=== PATIENT | male | born 2000 | race Caucasian/White ===

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

== ENCOUNTER → 2023-03-26 19:25 | Outpatient (CLI) | payer OTHER, SELFPAY ==
--- NOTE | 2023-03-26 19:27 | DI.RAD.S_ITS ---
PROCEDURE: XR KNEE RT 3V INDICATIONS: R anterior knee pain acute on chronic TECHNIQUE: 3 views of the knee were acquired. COMPARISON: None. FINDINGS: Bones: No fractures or dislocations. No suspicious bony lesions. Soft tissues: Small joint effusion. No suspicious soft tissue calcifications. IMPRESSION: No acute osseous abnormality. Dictated by: Maynor Crockett M.D. on 03/26/2023 at 19:53 Approved by: Maynor Crockett M.D. on 03/26/2023 at 19:53
== END ==
PROVIDERS: Family Provider Pediatrics; PCP Pediatrics; Referring Provider Student in an Organized Health Care Education/Training Program; Visit Provider Student in an Organized Health Care Education/Training Program
DX: M25.561 Pain in right knee (principal); M25.461 Effusion, right knee
CPT/HCPCS: 73562

== ENCOUNTER → 2024-02-06 08:46 | Outpatient (CLI) | payer OTHER, SELFPAY ==
--- NOTE | 2024-02-06 08:47 | DI.RAD.S_ITS ---
PROCEDURE: XR KNEE RT 3V INDICATIONS: Right knee injury TECHNIQUE: 3 views of the knee were acquired. COMPARISON: [facility], , XR KNEE RT 3V, 03/26/2023, 19:28. FINDINGS: Bones: There is a subtle lateral tibial plateau fracture. It is nondisplaced. No other fractures or dislocations. Soft tissues: Large knee joint effusion with fat fluid level. No suspicious soft tissue calcifications. IMPRESSION: Very subtle nondisplaced lateral tibial plateau fracture with associated large knee joint effusion with fat/fluid level. Attempts are being made to contact the referring clinician. This study was ordered as a routine study and was obtained at 0852 hours on 02/06/2024. Attempted communication is occurring on 02/06/2024 at 1455 hours. Dictated by: Dao Goodman M.D. on 02/06/2024 at 14:49 Approved by: Dao Goodman M.D. on 02/06/2024 at 14:55
== END ==
PROVIDERS: Family Provider Pediatrics; Referring Provider Nurse Practitioner Family; Visit Provider Nurse Practitioner Family
DX: S89.91XA Unspecified injury of right lower leg, initial encounter (principal); S82.144A Nondisplaced bicondylar fracture of right tibia, initial encounter for closed fracture; M25.461 Effusion, right knee; X58.XXXA Exposure to other specified factors, initial encounter
CPT/HCPCS: 73562

== ENCOUNTER → 2024-02-11 09:43 | Outpatient (CLI) | payer OTHER, SELFPAY ==
--- NOTE | 2024-02-11 09:46 | DI.MRI.S_ITS ---
PROCEDURE: MR KNEE RT WO CON INDICATIONS: RIGHT KNEE PAIN TECHNIQUE: Noncontrast sagittal PD fast spin echo and T2 fast spin echo with fat saturation, sagittal 3-D FLASH with fat saturation; coronal T1 spin echo and PD fast spin echo with fat saturation, and axial PD fast spin echo with fat saturation through the knee. COMPARISON: [facility], CR, XR KNEE RT 3V, 03/26/2023, 19:28. [facility], CR, XR KNEE RT 3V, 02/06/2024, 8:52. FINDINGS: Image quality: Excellent. Menisci: The medial and lateral menisci demonstrate normal morphology and internal signal. The meniscal root ligaments appear intact. Cruciate ligaments: The anterior and posterior cruciate ligaments appear intact. Medial structures: The medial collateral ligament appears mildly thickened near its femoral insertion. Visualized portions of the pes anserinus tendons appear normal. No abnormal bursal fluid. Lateral structures: The lateral collateral ligament, long and short heads of the biceps femoris tendon appear intact. The popliteus tendon appears normal. Iliotibial band appears normal. Anterior structures: Distal quadriceps tendinosis is seen. The patellar tendon is intact. Patellar alignment is normal. No femoral trochlear dysplasia or ventral trochlear prominence. No edema in the infrapatellar fat pad. Bones and cartilage: There is extensive marrow edema involving proximal tibia with depressed fracture involving fracture involving anterior aspect of lateral tibial plateau with up to 4 millimeter depression at fracture site. No other area of abnormal marrow signal. No dislocation. The cartilage of the medial and lateral femorotibial compartments, as well as the patellofemoral compartment, appears normal in thickness. Joint space: There is large joint effusion with fat fluid level consistent with lipohemarthrosis. Lobulated popliteal cyst is also seen measures 1.8 x 1.6 x 4.3 cm in size and contains fat fluid level. Normal appearing synovial plicae are incidentally noted. IMPRESSION: 1. Subacute appearing depressed fracture involving anterior aspect of lateral tibial plateau with extensive marrow edema in proximal tibia. No other fracture or dislocation. Articulating cartilage is intact. 2. Large lipohemarthrosis. Lobulated popliteal cyst as above. No intra-articular loose bodies. 3. No evidence of focal meniscal tear. 4. The cruciate ligaments are intact. 5. Very low-grade MCL sprain. 6. Distal quadriceps tendinosis. Dictated by: Jus Cam M.D. on 02/11/2024 at 15:46 Approved by: Jus Cam M.D. on 02/11/2024 at 15:55
== END ==
LOC: MRI 09:44
PROVIDERS: Family Provider Pediatrics; Referring Provider Physician Assistant Surgical; Visit Provider Physician Assistant Surgical
DX: S82.141A Displaced bicondylar fracture of right tibia, initial encounter for closed fracture (principal); S83.411A Sprain of medial collateral ligament of right knee, initial encounter; M25.461 Effusion, right knee; M25.061 Hemarthrosis, right knee; M71.21 Synovial cyst of popliteal space [Baker], right knee; X58.XXXA Exposure to other specified factors, initial encounter
CPT/HCPCS: 73721